=== PATIENT | male | born 1950 | race Caucasian/White ===

== ENCOUNTER → 2021-03-15 | Outpatient (CLI) | payer OTHER, SELFPAY | END | disposition home or self-care (01) | LOC: LABSPEC 12:20 | PROVIDERS: PCP Family Medicine; Visit Provider Family Medicine | DX: Z20.822 Contact with and (suspected) exposure to COVID-19 (principal) | CPT/HCPCS: 87635; U0005; U0003 ==

== ENCOUNTER 2021-04-05 08:30 | Outpatient (RCR) | payer OTHER, SELFPAY ==
--- NOTE | 2021-03-07 11:27 | HP.OTEVAL_ITS ---
Patient's Visit Information DORIS MIRANDA Jr. is a 71 year old M, referred to Occupational Therapy by Dr. Hiro Peña MD, with a diagnosis of left MF displaced fx of proximal phalanx. Date of Evaluation: 03/07/21 Occupational Therapist: Roxanne Liao, OTR/[place], CHT - Subjective This 71 year old male was seen for OT eval with dx of left displaced fx of proximal phalanx of left MF. DOI - pt states while mowing the grass he hit a rut and the steering wheel snapped back- braking his finger. pt underwent pinning . pt arrives with orthosis on- states some soreness where pins were removed- pt states he does a lot of outside work and not being able to use his hand is bothersome. pt would like to return to his POF. - ADLs Yard: Mow lawn, [place], [place] Miscellaneous: Use hand tools, Use power tools Comments: pt unable to use weed whacker or back pack blower - ROM MP: left -5/60 right 0/75 PIP: left MF -5/55* right 0/95 DIP: left MF 0/40 right 0/45 - Strength House Cleaner Supervisor: left NT right 75# Lateral Pinch: left NT right 12# Tripod Pinch: left NT right 12# - Edema PIP: left MF 7.5 right 7.0 - Sensation Sensation Comments: marisol - Quick DASH-Disab of Arm,Shoulder& Hand Quick DASH Score: 13.6350 - Goals Goal:: pt will demo a left supervisor drilling and shooting strength to 45# or greater to return pt to PLOF by d.c Goal:: pt will demo the ability to form a composite to hold small object ind. by dc. pt will demo MCP flexion to 70* or greater, and PIP flexion to 85* or greater by d.c to increase ind. with composite fist - Rehabilitation General Assessment: pt demo with healing fx and limited ROM of left digits limiting pts ability to form a composite fist. This limits pt with IADLs and home mtg. pt would benefit from skilled OT services 1-2x week for 4 weeks to return pts ROM and strength for pt to become IND with his Home mtg. Today therapist adjusted orthosis to increase comfort, ed. pt on tendon glides and hand anatomy- ed.pt that at 6 weeks s/p strengthening can be initiated pt demo understanding and agree to POC. Rehabilitation Potential: Good - Anticipated Interventions A/AAROM/PROM, Strengthening, Edema Control, Scar Care, Modalities, Orthoses, Joint Protection/Energy Conservation, Fine Motor Coord/Keyur, Education re Diagnosis - Visit Plan Frequency: 1-2x /Week Duration: 6 Weeks TEXT: Thank you for the opportunity to evaluate your patient. For Medicare and Medicare HMO plans, please review the plan of care and approve it. It will need to be FAXED BACK to us at [phone] for Medicare purposes. Please let me know if there are questions or concerns regarding this plan of care. Physician Signature: ___Date:
--- NOTE | 2021-04-05 08:43 | HP.OTDCSUM_ITS ---
It has been my pleasure to treat DORIS MIRANDA JrMatias under orders from Dr. Hiro Peña MD, for the diagnosis of left MF displaced fx of proximal phalanx for a total of 5 visit(s). Please see the following information for a summary of their discharge status. % Improvement: 95 Objective/Function: pt demo a left propellant charge loader strength at 40#. pt states he is IND with his ADLs and IADLs. pt states if he doesn't think of his hand he is not limited with any tasks. left PIP ROM -* this is increase ROM from 55*. left DIP 065. left MCP 0. pt has made good gains with his ROM and strength- pt is going to continue strengthening his hand and perform his ROM exercise. pt is ind with ADLs and IADls Patient Goals: Regain Mobility, Regain Strength, Use Hand/Wrist/Arm Normally Again Goal:: pt will demo a left propellant charge loader strength to 45# or greater to return pt to PLOF by d.c Goal:: pt will demo the ability to form a composite to hold small object ind. by dc. pt will demo MCP flexion to 70* or greater, and PIP flexion to 85* or greater by d.c to increase ind. with composite fist Plan: D/C with [facility]P Discharge Comments: pt was seen for 5 OT visits- therapy transitioned pt from a ROM to strengthening program. pt made great gains and currently has met goals in OT. pt d/c with HEP. If there are questions or concerns regarding this patient's occupational therapy, please fell free to call me at [phone]. Thank you for the referral of this patient. Sincerely, Roxanne Liao, OTR/L, CHT
== END 2021-04-05 19:00 | disposition home or self-care (01) ==
LOC: OT 08:30
PROVIDERS: PCP Family Medicine; Referring Provider Orthopaedic Surgery; Visit Provider Orthopaedic Surgery
DX: S62.613D Displaced fracture of proximal phalanx of left middle finger, subsequent encounter for fracture with routine healing (principal)
CPT/HCPCS: 97110; 97166; 97530

== ENCOUNTER 2021-09-08 11:11 | Outpatient (CLI) | payer OTHER, SELFPAY ==
--- NOTE | 2021-09-08 11:14 | RAD_ITS ---
STUDY: X-RAY - RIGHT KNEE REASON FOR EXAM: Male, 71 years old. Knee pain. TECHNIQUE: 4 view(s) of the knee. COMPARISON: None. FINDINGS: Osteopenia. Superior patellar spur. Mild medial compartmental arthrosis with small osteophytes. Mild arthrosis of the lateral compartment with osteophytes. Lateral tilt and subluxation of the patella with moderate arthrosis of the patellofemoral compartment with osteophyte formation. Small joint effusion with at least 2 small intra-articular osteochondral bodies projected anterior to the knee on the lateral view. Focal anterior soft tissue swelling over the distal quadriceps tendon. RAD/Knee 4 or More Views IMPRESSION: Osteopenia with superior patellar spur. Tricompartmental arthrosis as described. Joint effusion with at least 2 small intra-articular osteochondral bodies. Focal anterior soft tissue swelling over the distal quadriceps tendon. Electronically Signed: Lauri Riojas MD at 11:36 EDT ,
--- NOTE | 2021-09-08 11:14 | RAD_ITS ---
STUDY: X-RAY - LEFT KNEE REASON FOR EXAM: Male, 71 years old. Knee pain. TECHNIQUE: 4 view(s) of the knee. COMPARISON: None. FINDINGS: Osteopenia. Mild arthrosis of the medial compartment. Moderate arthrosis of the lateral compartment with osteophytes noted Mild arthrosis of the patellofemoral compartment with small osteophytes. Focal soft tissue swelling superficial to the distal quadriceps tendon. RAD/Knee 4 or More Views IMPRESSION: Osteopenia with tricompartmental arthrosis. Focal anterior soft tissue swelling adjacent to the distal quadriceps tendon. No acute finding. Electronically Signed: Lauri Riojas MD at 11:32 EDT ,
== END 2021-09-08 23:59 | disposition home or self-care (01) ==
LOC: MTLAB 11:13
PROVIDERS: PCP Family Medicine; Referring Provider Family Medicine; Visit Provider Family Medicine
DX: M25.561 Pain in right knee (principal); M25.562 Pain in left knee; M19.90 Unspecified osteoarthritis, unspecified site
CPT/HCPCS: 73564

== ENCOUNTER → 2022-03-17 | Outpatient (CLI) | payer OTHER, SELFPAY ==
[2022-03-17 12:12] LABS: Absolute Lymphocyte Count 2.01 X10^3/uL (0.83-4.51); Absolute Neutrophil Count 6.4 X10^3/uL (2.0-7.7); Basophil# 0.06 X10^3/uL; Basophil% 0.6 % (0-1); Eosinophil# 0.16 X10^3/uL; Eosinophils% 1.7 % (0-5); Hematocrit 47.7 % (40-54); Hemoglobin 14.8 g/dL (13.0-16.5); Lymphocyte # 2.01 X10^3/ul (0.83-4.51); Lymphocyte % 21.5 % (19-41); Mean Corpuscular Hgb 27.9 pg (27.0-32.0); Mean Corpuscular Volume 89.8 fL (80-94); Mean Platelet Vol. 11.6 fl (6.2-12.0); Monocyte# 0.73 X10^3/uL; Monocyte% 7.8 % (0-10); NRBC Flagged by Analyzer 0 % (0-5); Neutrophil # 6.38 X10^3/uL (2.7-7.7); Neutrophil % 68.1 % (47-70); Platelet Count 233 K/mm3 (150-450); RBC Distribution Width CV 14.9 % (11.6-14.6); RBC Distribution Width SD 48.9 fl (35.1-43.9); Red Blood Count 5.31 M/mm3 (4.6-6.2); White Blood Count 9.4 K/mm3 (4.4-11.0)
[2022-03-17 12:39] LABS: ALB/GLOB Ratio 0.9 RATIO (0.9-2.4); AST(SGOT) 17 U/L (15-37); Alanine Aminotransfer ALT/SGPT 34 U/L (16-61); Albumin, Serum 3.5 g/dL (3.2-5.0); Alkaline Phosphatase 70 U/L (45-117); Anion Gap 6 (5-15); BUN 15 mg/dL (7-18); BUN/Creat Ratio 13.4 RATIO (10-20); Calcium,Total 9.6 mg/dL (8.5-10.1); Chloride 104 mmol/L (98-107); Cholesterol 184 mg/dL (200); Creatinine, Serum 1.12 mg/dL (0.70-1.30); EST Glomerular Filtration Rate 69 mL/min (>60); Est Glom Filt Rate - Afr Amer 83 mL/min (>60); Glucose 114 mg/dL (74-106); High Density Lipoprotein 40 mg/dL; PSA,Total - Annual Screen 0.69 ng/mL (0.00-4.00); Protein, Total 7.5 g/dL (6.4-8.2); Sodium Level 139 mmol/L (136-145); Triglycerides 90 mg/dL; Very Low Density Lipoprotein 18 mg/dL (5-40)
[2022-03-17 13:01] LABS: Microalbumin:Creatinine Ratio 12.1 mg/g CRE (<30 mg/g CRE)
[2022-03-17 14:07] LABS: Hemoglobin A1c 6.3 % (3.8-5.6)
== END | disposition home or self-care (01) ==
LOC: MTLAB 09:53
PROVIDERS: PCP Family Medicine; Referring Provider Family Medicine; Visit Provider Family Medicine
DX: E11.9 Type 2 diabetes mellitus without complications (principal); Z51.81 Encounter for therapeutic drug level monitoring; Z12.5 Encounter for screening for malignant neoplasm of prostate
CPT/HCPCS: 36415; 80053; 80061; 82043; 82570; 83036; 84153; 85025; G0103

== ENCOUNTER → 2022-10-26 | Outpatient (CLI) | payer OTHER, SELFPAY ==
[2022-10-26 12:34] LABS: Absolute Lymphocyte Count 2.33 X10^3/uL (0.83-4.51); Absolute Neutrophil Count 6.2 X10^3/uL (2.0-7.7); Basophil# 0.06 X10^3/uL; Basophil% 0.6 % (0-1); Eosinophil# 0.16 X10^3/uL; Eosinophils% 1.7 % (0-5); Hematocrit 50.1 % (40-54); Hemoglobin 15.3 g/dL (13.0-16.5); Lymphocyte # 2.33 X10^3/ul (0.83-4.51); Lymphocyte % 24.5 % (19-41); Mean Corp Hgb Conc 30.5 g/dL (32-36); Mean Corpuscular Hgb 27.7 pg (27.0-32.0); Mean Corpuscular Volume 90.8 fL (80-94); Mean Platelet Vol. 11.8 fl (6.2-12.0); Monocyte# 0.76 X10^3/uL; NRBC Flagged by Analyzer 0 % (0-5); Neutrophil # 6.17 X10^3/uL (2.7-7.7); Neutrophil % 64.9 % (47-70); Platelet Count 248 K/mm3 (150-450); RBC Distribution Width CV 15.1 % (11.6-14.6); RBC Distribution Width SD 50.7 fl (35.1-43.9); Red Blood Count 5.52 M/mm3 (4.6-6.2); White Blood Count 9.5 K/mm3 (4.4-11.0)
[2022-10-26 12:53] LABS: Vitamin B12 > 2000 pg/mL (211-911); Vitamin D,25 Hydroxy 57.6 ng/mL
[2022-10-26 13:03] LABS: ALB/GLOB Ratio 0.8 RATIO (0.9-2.4); AST(SGOT) 19 U/L (15-37); Alanine Aminotransfer ALT/SGPT 34 U/L (16-61); Albumin, Serum 3.6 g/dL (3.2-5.0); Alkaline Phosphatase 66 U/L (45-117); Anion Gap 6 (5-15); BUN 21 mg/dL (7-18); BUN/Creat Ratio 19.3 RATIO (10-20); Calcium,Total 9.5 mg/dL (8.5-10.1); Chloride 104 mmol/L (98-107); Creatinine, Serum 1.09 mg/dL (0.70-1.30); EST Glomerular Filtration Rate 71 mL/min (>60); Est Glom Filt Rate - Afr Amer 85 mL/min (>60); Free T3 2.3 pg/mL (2.18-3.98); Globulin 4.4 g/dL (2.2-4.2); Glucose 141 mg/dL (74-106); Potassium 4.5 mmol/L (3.5-5.1); Sodium Level 139 mmol/L (136-145); T4 Free Direct 0.89 ng/dL (0.76-1.46); Thyroid Stim Hormone (TSH) 3.12 uIU/mL (0.358-3.74)
== END | disposition home or self-care (01) ==
LOC: BFHLAB 09:52
PROVIDERS: PCP Family Medicine; Referring Provider Family Medicine; Visit Provider Family Medicine
DX: E11.9 Type 2 diabetes mellitus without complications (principal); R53.83 Other fatigue; E55.9 Vitamin D deficiency, unspecified; E53.8 Deficiency of other specified B group vitamins; Z51.81 Encounter for therapeutic drug level monitoring
CPT/HCPCS: 36415; 80053; 82306; 82607; 84439; 84443; 84481; 85025

== ENCOUNTER → 2023-07-19 | Outpatient (CLI) | payer OTHER, SELFPAY ==
[2023-07-19 12:30] LABS: Absolute Lymphocyte Count 1.98 X10^3/uL (0.83-4.51); Absolute Neutrophil Count 5.6 X10^3/uL (2.0-7.7); Basophil# 0.05 X10^3/uL; Basophil% 0.6 % (0-1); Eosinophil# 0.18 X10^3/uL; Eosinophils% 2.1 % (0-5); Hematocrit 42.8 % (40-54); Hemoglobin 13.1 g/dL (13.0-16.5); Lymphocyte # 1.98 X10^3/ul (0.83-4.51); Mean Corp Hgb Conc 30.6 g/dL (32-36); Mean Corpuscular Volume 91.5 fL (80-94); Mean Platelet Vol. 12.2 fl (6.2-12.0); Monocyte# 0.77 X10^3/uL; Monocyte% 8.9 % (0-10); NRBC Flagged by Analyzer 0 % (0-5); Neutrophil # 5.61 X10^3/uL (2.7-7.7); Neutrophil % 65.1 % (47-70); Platelet Count 234 K/mm3 (150-450); RBC Distribution Width CV 14.1 % (11.6-14.6); RBC Distribution Width SD 47.5 fl (35.1-43.9); Red Blood Count 4.68 M/mm3 (4.6-6.2); White Blood Count 8.6 K/mm3 (4.4-11.0)
[2023-07-19 12:45] LABS: Microalbumin,Random Urine 17.3 mg/L (NO RANGE EST.); Microalbumin:Creatinine Ratio 7.4 mg/g CRE (<30 mg/g CRE)
[2023-07-19 13:56] LABS: AST(SGOT) 17 U/L (15-37); Alanine Aminotransfer ALT/SGPT 26 U/L (16-61); Albumin, Serum 3.5 g/dL (3.2-5.0); Alkaline Phosphatase 56 U/L (45-117); Anion Gap 3 (5-15); BUN 17 mg/dL (7-18); BUN/Creat Ratio 17.7 RATIO (10-20); Calcium,Total 9.7 mg/dL (8.5-10.1); Chloride 106 mmol/L (98-107); Cholesterol 178 mg/dL (200); Creatinine, Serum 0.96 mg/dL (0.70-1.30); EST Glomerular Filtration Rate 82 mL/min (>60); Est Glom Filt Rate - Afr Amer 99 mL/min (>60); Free T3 2.4 pg/mL (2.18-3.98); Globulin 3.6 g/dL (2.2-4.2); Glucose 108 mg/dL (74-106); High Density Lipoprotein 44 mg/dL; PSA,Total - Annual Screen 0.53 ng/mL (0.00-4.00); Protein, Total 7.1 g/dL (6.4-8.2); Sodium Level 139 mmol/L (136-145); T4 Free Direct 1.14 ng/dL (0.76-1.46); Thyroid Stim Hormone (TSH) 2.53 uIU/mL (0.358-3.74); Triglycerides 63 mg/dL; Very Low Density Lipoprotein 13 mg/dL (5-40)
[2023-07-28 10:08] LABS: Testosterone, % Free 2.71 % (1.50-4.20); Testosterone, Free 6.29 ng/dL (5.00-21.00); Testosterone, Total 232 ng/dL (264-916)
== END | disposition home or self-care (01) ==
LOC: BFHLAB 10:03
PROVIDERS: PCP Family Medicine; Visit Provider Family Medicine
DX: Z12.5 Encounter for screening for malignant neoplasm of prostate (principal); E11.9 Type 2 diabetes mellitus without complications; N52.9 Male erectile dysfunction, unspecified; R53.83 Other fatigue; Z51.81 Encounter for therapeutic drug level monitoring
CPT/HCPCS: 36415; 80053; 80061; 82043; 82570; 84153; 84402; 84403; 84439; 84443; 84481; 85025; G0103

== ENCOUNTER → 2023-09-03 | Outpatient (CLI) | payer OTHER, SELFPAY ==
--- NOTE | 2023-09-03 13:43 | RAD_ITS ---
STUDY: X-RAY - LUMBOSACRAL SPINE REASON FOR EXAM: Male, 73 years old. BACK PAIN TECHNIQUE: 6 view(s) of the lumbosacral spine were obtained including flexion and extension. COMPARISON: None FINDINGS: Normal lumbar lordosis. There is no substantial scoliosis. There is grade 1 retrolisthesis at L3-4. There is no subluxation with flexion or extension. There is multilevel endplate spondylosis of the lumbar vertebrae. There is facet spurring of the lower lumbar spine. Normal bilateral sacral ala, sacroiliac joints, and visualized sacrum. Normal visualized soft tissue structures. RAD/L/S Spine Comp/w Bending Views IMPRESSION: Degenerative changes of the spine, as detailed above. Electronically Signed: Jp Lagunas MD at 19:04 EDT ,
== END | disposition home or self-care (01) ==
PROVIDERS: PCP Family Medicine; Referring Provider Family Medicine; Visit Provider Family Medicine
DX: M54.9 Dorsalgia, unspecified (principal)
CPT/HCPCS: 72114; 72120

== ENCOUNTER 2023-10-20 16:49 | Emergency (ER) | payer OTHER, SELFPAY ==
[2023-10-20 16:49] VITALS: BP 159/88; PULSE 98; RESP 16; TEMP 35.6
[2023-10-20 16:53] VITALS: BP 159/88; PULSE 98; RESP 16; TEMP 35.5; BMI 33.9
--- NOTE | 2023-10-20 17:11 | CT_ITS ---
EXAM: CT ABDOMEN AND PELVIS WITHOUT INTRAVENOUS CONTRAST CLINICAL INDICATION: R flank pain TECHNIQUE: Helically acquired images were obtained of the abdomen and pelvis without intravenous contrast. This CT exam was performed using one or more of the following dose reduction techniques: automated exposure control, adjustment of the mA and/or kV according to patient size, and/or use of iterative reconstruction technique. COMPARISON: No relevant prior studies available. FINDINGS: LOWER THORAX: Unremarkable. Lung bases are clear. No cardiomegaly. No significant pericardial effusion. ABDOMEN: LIVER: Unremarkable. Homogeneous. GALLBLADDER AND BILE DUCTS: Unremarkable. No calcified gallstones. No gallbladder distention or wall edema. No intra- or extrahepatic biliary ductal dilation. PANCREAS: Unremarkable. No focal cystic mass. SPLEEN: Unremarkable. Normal size without focal cystic or solid mass. ADRENALS: Unremarkable. No nodules. KIDNEYS AND URETERS: There are low-density masses in both kidneys compatible with cysts. No follow-up imaging is necessary. There is mild right-sided hydronephrosis and ureter. There is a 4 mm stone in the bladder at the level of right ureteral orifice. STOMACH AND BOWEL: There are fluid-filled loops of small bowel which may represent. No stomach or bowel distention. No focal inflammatory change. PELVIS: APPENDIX: No evidence of acute appendicitis. BLADDER: Unremarkable. REPRODUCTIVE: Unremarkable as visualized. No mass. ABDOMEN and PELVIS: INTRAPERITONEAL SPACE: Unremarkable. No ascites or other fluid collection. No free air. BONES/JOINTS: Unremarkable. No suspicious lytic or blastic abnormality. SOFT TISSUES: Unremarkable. No discrete abdominal or pelvic wall hernia. VASCULATURE: Unremarkable. Abdominal aorta is non-dilated. LYMPH NODES: Unremarkable. No enlarged lymph nodes. CT/Abdomen/Pelvis without Cont IMPRESSION: 1. Obstruction of the right collecting system due to a 4 mm stone in the bladder at the level of right ureteral orifice. There is mild right-sided hydronephrosis. 2. Fluid-filled loops of small bowel which may represent mild enteritis. Electronically Signed: Harshad Wilson MD at 18:19 EDT ,
--- NOTE | 2023-10-20 17:13 | EX.ED.DYSGE1 ---
HPI <LUCY Posada - Last Filed: 10/20/23 18:29> History of Present Illness Chief Complaint: Flank Pain Narrative Narrative: Patient presenting today due to right-sided flank pain that radiates to his right groin that started this afternoon. He reports that the pain has been intermittent and sharp. He has had about 4 episodes of vomiting due to the pain. He denies any history of kidney stones or previous abdominal surgeries. He reports that over the past 2 days he has been constipated, he did take MiraLAX and had a small bowel movement this morning. He denies any fevers, chills, hematemesis, diarrhea, and urinary symptoms. He has a PMH of diabetes mellitus. PFSH <LUCY Posada Last Filed: 10/20/23 18:29> PFSH Allergy/AdvReac Type Severity Reaction Status Date / Time No Known Allergies Allergy Verified 10/20/23 16:53 ROS <LUCY Posada - Last Filed: 10/20/23 18:29> ROS ED Constitutional Constitutional ED: Reports sweats; Denies chills or fever(s) Cardiovascular Cardiovascular: Denies chest pain Respiratory/Chest Respiratory/Chest: Denies cough or dyspnea Gastrointestinal Gastrointestinal: Reports abdominal pain, constipation, nausea and vomiting; Denies diarrhea Genitourinary Genitourinary ED: Denies dysuria, hematuria or urinary urgency Musculoskeletal Musculoskeletal: Reports back pain Integumentary Denies rash Neurologic Neurologic: Denies weakness Psychiatric Psychiatric: Denies anxiety EXAM <LUCY Posada Last Filed: 10/20/23 18:29> Physical Exam Const Vital Signs: 10/20/23 16:53 10/20/23 16:49 Temperature 96 F L 96.0 F L Temperature Source Temporal Temporal Pulse Rate 98 98 Respiratory Rate 16 16 Blood Pressure 159/88 H 159/88 H Blood Pressure Mean 111 111 Positive well nourished, well developed and no apparent distress General Appearance ED: well developed HEENT Reports normocephalic and head/scalp atraumatic Mouth ED: Yes moist mucous membranes normal Eyes PERRL and EOMs intact bilaterally Neck full ROM and supple Chest Wall inspection of chest normal Resp normal respiratory effort and clear to auscultation bilaterally Cardio regular rate and regular rhythm GI soft to palpation, non-tender, non-distended and no masses GI Narrative: Negative McBurney's point tenderness, no rigidity, guarding, or peritoneal signs Back/Spine normal ROM and normal to inspection General Back: CVA tenderness right Extremity normal to inspection and full ROM Neuro oriented x3, CN's II-XII intact bilaterally, moves all extremities, no focal motor deficits and no sensory deficits noted Sensorium / Orientation: awake and alert Psych mental status grossly normal and thought process normal Skin no rashes or lesions noted and no wounds <Dr. Todd Lantigua MD - Last Filed: 10/20/23 18:31> Physical Exam Const Vital Signs: 10/20/23 16:53 10/20/23 16:49 Temperature 96 F L 96.0 F L Temperature Source Temporal Temporal Pulse Rate 98 98 Respiratory Rate 16 16 Blood Pressure 159/88 H 159/88 H Blood Pressure Mean 111 111 MDM <LUCY Posada - Last Filed: 10/20/23 18:29> [facility] Narrative Medical decision making narrative: Patient presenting with right flank pain that started this afternoon. He has had a few episodes of nausea and vomiting. He is well-appearing and in no acute distress, vitals are unremarkable. Examination is suspicious for a kidney stone. Labs will be obtained to rule out leukocytosis, anemia, electrode abnormality, CICI, and UTI. CT of the abdomen and pelvis will be obtained to rule out kidney stone, appendicitis, diverticulitis, bowel obstruction, and other etiology. CT scan does show a 4 mm stone in the bladder. On reexamination he reports that his pain is gone. Patient will be discharged home in stable condition. I have personally performed a face to face assessment of the patient and have reviewed the CARA Note. I performed a substantive portion of the visit including all aspects of the following. My bustos findings include: History is remarkable for acute right flank pain rating to his groin started I was a strain of a bowel movement. He denies history of renal or ureterolithiasis. He did have nausea and vomiting and was diaphoretic. He endorses inability to find a position of comfort. Is never experienced any like this. Denies scrotal or testicular swelling. He denies any dysuria, frequency, urgency or hematuria. Exam is vital signs reveal elevated blood pressure. HEENT is grossly unremarkable. No respiratory distress. Heart is regular. Rate is normal. Abdomen soft nontender. No evidence of inguinal hernia or mass. No klaudia lymphadenopathy. There is no CVA tenderness or abdominal tenderness. Medical Decision Making differential diagnosis would be atypical presentation for aortic aneurysm, dissection, obstructing ureteral stone Other additions or changes: CT of the abdomen pelvis without contrast reveals a small stone which has passed. There was evidence of hydroureter and nephrosis on the right with large renal cysts on the right. Lab Data Labs: Laboratory Results - last 24 hr 10/20/23 10/20/23 17:27 17:48 WBC 17.3 H RBC 5.21 Hgb 14.5 Hct 46.6 MCV 89.4 MCH 27.8 MCHC 31.1 L RDW Std Deviation 44.1 H RDW Coeff of [place]ba 13.5 Plt Count 269 MPV 11.8 Immature Gran % (Auto) 0.500 Neut % (Auto) 82.7 H Lymph % (Auto) 9.2 L [place] % (Auto) 6.6 Eos % (Auto) 0.5 Baso % (Auto) 0.5 Absolute Neuts (auto) 14.3 H Absolute Lymphs (auto) 1.59 Nucleated RBC % 0 Sodium 137 Potassium 3.9 Chloride 100 Carbon Dioxide 27.0 Anion Gap 10 BUN 22 H Creatinine 1.53 H Estim Creat Clear Calc 48.01 Est GFR (MDRD) Af Amer 58 L Est GFR (MDRD) Non-Af 48 L BUN/Creatinine Ratio 14.4 Glucose 171 H Calcium 10.5 H Urine Color Yellow Urine Clarity Clear Urine pH 5.0 Ur Specific [place] 1.025 Urine Protein 30 H Urine Glucose (UA) Normal Urine Ketones 5 H Urine Occult Blood 250 H Urine Nitrite Negative Urine Bilirubin Negative Urine Urobilinogen Normal Ur Leukocyte Esterase 25 H Urine RBC 25-50 SEEN Urine WBC 0-5 SEEN Ur Squamous Epith Cells 0 SEEN Urine Bacteria 0 SEEN Urine Mucus 0 SEEN Radiography Diagnostic Testing: Clinical Impression(s) from Imaging Studies Abdomen/Pelvis CT 10/20/23 17:11 IMPRESSION: 1. Obstruction of the right collecting system due to a 4 mm stone in the bladder at the level of right ureteral orifice. There is mild right-sided hydronephrosis. 2. Fluid-filled loops of small bowel which may represent mild enteritis. Electronically Signed: Harshad Wilson MD at 18:19 EDT , <Dr. Todd Lantigua MD - Last Filed: 10/20/23 18:31> [facility] Narrative Medical decision making narrative: Patient presenting with right flank pain that started this afternoon. He has had a few episodes of nausea and vomiting. He is well-appearing and in no acute distress, vitals are unremarkable. Examination is suspicious for a kidney stone. Labs will be obtained to rule out leukocytosis, anemia, electrode abnormality, CICI, and UTI. CT of the abdomen and pelvis will be obtained to rule out kidney stone, appendicitis, diverticulitis, bowel obstruction, and other etiology. I have personally performed a face to face assessment of the patient and have reviewed the CARA Note. I performed a substantive portion of the visit including all aspects of the following. My bustos findings include: History is remarkable for acute right flank pain rating to his groin started I was a strain of a bowel movement. He denies history of renal or ureterolithiasis. He did have nausea and vomiting and was diaphoretic. He endorses inability to find a position of comfort. Is never experienced any like this. Denies scrotal or testicular swelling. He denies any dysuria, frequency, urgency or hematuria. Exam is vital signs reveal elevated blood pressure. HEENT is grossly unremarkable. No respiratory distress. Heart is regular. Rate is normal. Abdomen soft nontender. No evidence of inguinal hernia or mass. No klaudia lymphadenopathy. There is no CVA tenderness or abdominal tenderness. Medical Decision Making differential diagnosis would be atypical presentation for aortic aneurysm, dissection, obstructing ureteral stone Other additions or changes: CT of the abdomen pelvis without contrast reveals a small stone which has passed. There was evidence of hydroureter and nephrosis on the right with large renal cysts on the right. Lab Data Attestation: I reviewed the patient's lab results. Lab results narrative: White count is elevated with slight shift 17.3 and 82.7 respectively. This could be due to pain/stress. BUN/creatinine elevated 22 and 1.53. GFR is 48. Glucose is elevated 171. CO2 and anion gap are normal. Patient does not have history of diabetes. This will need to be followed up as an outpatient. Labs: Laboratory Results - last 24 hr 10/20/23 10/20/23 17:27 17:48 WBC 17.3 H RBC 5.21 Hgb 14.5 Hct 46.6 MCV 89.4 MCH 27.8 MCHC 31.1 L RDW Std Deviation 44.1 H RDW Coeff of [place] 13.5 Plt Count 269 MPV 11.8 Immature Gran % (Auto) 0.500 Neut % (Auto) 82.7 H Lymph % (Auto) 9.2 L [place] % (Auto) 6.6 Eos % (Auto) 0.5 Baso % (Auto) 0.5 Absolute Neuts (auto) 14.3 H Absolute Lymphs (auto) 1.59 Nucleated RBC % 0 Sodium 137 Potassium 3.9 Chloride 100 Carbon Dioxide 27.0 Anion Gap 10 BUN 22 H Creatinine 1.53 H Estim Creat Clear Calc 48.01 Est GFR (MDRD) Af Amer 58 L Est GFR (MDRD) Non-Af 48 L BUN/Creatinine Ratio 14.4 Glucose 171 H Calcium 10.5 H Urine Color Yellow Urine Clarity Clear Urine pH 5.0 Ur Specific [place] 1.025 Urine Protein 30 H Urine Glucose (UA) Normal Urine Ketones 5 H Urine Occult Blood 250 H Urine Nitrite Negative Urine Bilirubin Negative Urine Urobilinogen Normal Ur Leukocyte Esterase 25 H Urine RBC 25-50 SEEN Urine WBC 0-5 SEEN Ur Squamous Epith Cells 0 SEEN Urine Bacteria 0 SEEN Urine Mucus 0 SEEN Radiography Diagnostic Testing: Clinical Impression(s) from Imaging Studies Abdomen/Pelvis CT 10/20/23 17:11 IMPRESSION: 1. Obstruction of the right collecting system due to a 4 mm stone in the bladder at the level of right ureteral orifice. There is mild right-sided hydronephrosis. 2. Fluid-filled loops of small bowel which may represent mild enteritis. Electronically Signed: Harshad Wilson MD at 18:19 EDT , Discharge Plan Triage Chief Complaint: Flank Pain ED Midlevel Provider: Nguyen Orozco ED Provider: Todd Lantigua Dx/Rx/DC Orders Clinical Impression: Type 2 diabetes mellitus with hyperglycemia, Hydronephrosis with urinary obstruction due to ureteral calculus, Elevated serum creatinine, Elevated blood-pressure reading without diagnosis of hypertension Instructions: ED Kidney Stone, Passed Primary Care Provider: Jennifer Palomares Referrals: Jennifer Palomares DO [Primary Care Provider] - 1 Week Activity Restrictions/Additional Instructions: Follow-up with your PCP and return for any worsening of your symptoms. Disposition Disposition: Home, Self Care
[2023-10-20] MEDS: Ondansetron 4 MG/2 ML Vial IV (17:34)
[2023-10-20] MEDS: Ketorolac 15 MG/ML Vial IV (17:34)
[2023-10-20] MEDS: 0.9% Normal Saline (1000mL) 1,000 ML 999 ML IV (17:34)
[2023-10-20] MEDS: Morphine 4 MG/ML Syringe IV (17:35)
[2023-10-20 17:45] LABS: Absolute Lymphocyte Count 1.59 X10^3/uL (0.83-4.51); Absolute Neutrophil Count 14.3 X10^3/uL (2.0-7.7); Basophil# 0.08 X10^3/uL; Basophil% 0.5 % (0-1); Eosinophil# 0.09 X10^3/uL; Eosinophils% 0.5 % (0-5); Hematocrit 46.6 % (40-54); Hemoglobin 14.5 g/dL (13.0-16.5); Lymphocyte # 1.59 X10^3/ul (0.83-4.51); Lymphocyte % 9.2 % (19-41); Mean Corp Hgb Conc 31.1 g/dL (32-36); Mean Corpuscular Hgb 27.8 pg (27.0-32.0); Mean Corpuscular Volume 89.4 fL (80-94); Mean Platelet Vol. 11.8 fl (6.2-12.0); Monocyte# 1.14 X10^3/uL; Monocyte% 6.6 % (0-10); NRBC Flagged by Analyzer 0 % (0-5); Neutrophil # 14.29 X10^3/uL (2.7-7.7); Neutrophil % 82.7 % (47-70); Platelet Count 269 K/mm3 (150-450); RBC Distribution Width CV 13.5 % (11.6-14.6); RBC Distribution Width SD 44.1 fl (35.1-43.9); Red Blood Count 5.21 M/mm3 (4.6-6.2); White Blood Count 17.3 K/mm3 (4.4-11.0)
[2023-10-20 17:56] LABS: Bacteria 0 SEEN /hpf (None Seen); Color, Urine Yellow (Yellow); Glucose, Dipstick Normal (Normal); Ketone-Dipstick 5 mg/dl (Negative); Leukocyte Esterase-Dipstick 25 /ul (Negative); Mucous, Urine 0 SEEN /hpf (<or=2+); Nitrite-Dipstick Negative (Negative); Occult Blood-Urine 250 /ul (Negative); Protein-Dipstick 30 mg/dl (Negative); Specific Gravity, Urine 1.025 (1.002-1.030); Squamous Epithelial Cells - UA 0 SEEN /hpf (0-5); Urine Bilirubin Dipstick Negative (Negative); Urine Clarity Clear (Clear); Urine Urobilinogen Normal (Normal)
[2023-10-20 18:05] LABS: Anion Gap 10 (5-15); BUN 22 mg/dL (7-18); BUN/Creat Ratio 14.4 RATIO (10-20); Calcium,Total 10.5 mg/dL (8.5-10.1); Chloride 100 mmol/L (98-107); Creatinine, Serum 1.53 mg/dL (0.70-1.30); EST Glomerular Filtration Rate 48 mL/min (>60); Est Glom Filt Rate - Afr Amer 58 mL/min (>60); Estimated Creatinine Clearance 48.01 ml/min; Glucose 171 mg/dL (74-106); Potassium 3.9 mmol/L (3.5-5.1); Sodium Level 137 mmol/L (136-145)
[2023-10-20 18:14] LABS: Red Blood Cells-Urine 25-50 SEEN /hpf (0-5); White Blood Cells 0-5 SEEN /hpf (0-5)
[2023-10-20 18:49] VITALS: BP 110/68; PULSE 74; RESP 16; O2SAT 98
[2023-10-20 18:50] VITALS: BP 107/72; PULSE 69; RESP 18; TEMP 36.9; O2SAT 98
== END 2023-10-20 18:52 | disposition home or self-care (01) ==
PROVIDERS: Physician Assistant; Emergency Provider Emergency Medicine; PCP Family Medicine; Visit Provider Emergency Medicine
DX: N13.2 Hydronephrosis with renal and ureteral calculous obstruction (principal); E11.65 Type 2 diabetes mellitus with hyperglycemia; R03.0 Elevated blood-pressure reading, without diagnosis of hypertension; R11.2 Nausea with vomiting, unspecified; N28.1 Cyst of kidney, acquired; N13.4 Hydroureter; Z79.84 Long term (current) use of oral hypoglycemic drugs; Z79.899 Other long term (current) drug therapy
CPT/HCPCS: 74176; 80048; 81001; 85025; 96361; 96374; 96375; 99283; J7030; A4216; J2405

== ENCOUNTER → 2024-09-24 | Outpatient (CLI) | payer OTHER, SELFPAY ==
[2024-09-24 12:59] LABS: Absolute Lymphocyte Count 2.42 X10^3/uL (0.83-4.51); Absolute Neutrophil Count 4.5 X10^3/uL (2.0-7.7); Basophil# 0.05 X10^3/uL; Basophil% 0.6 % (0-1); Eosinophil# 0.17 X10^3/uL; Eosinophils% 2.2 % (0-5); Hematocrit 42.7 % (40-54); Hemoglobin 13.7 g/dL (13.0-16.5); Lymphocyte # 2.42 X10^3/ul (0.83-4.51); Lymphocyte % 30.7 % (19-41); Mean Corp Hgb Conc 32.1 g/dL (32-36); Mean Corpuscular Hgb 28.7 pg (27.0-32.0); Mean Corpuscular Volume 89.3 fL (80-94); Mean Platelet Vol. 11.4 fl (6.2-12.0); Monocyte# 0.71 X10^3/uL; NRBC Flagged by Analyzer 0 % (0-5); Neutrophil # 4.53 X10^3/uL (2.7-7.7); Neutrophil % 57.4 % (47-70); Platelet Count 236 K/mm3 (150-450); RBC Distribution Width SD 45.2 fl (35.1-43.9); Red Blood Count 4.78 M/mm3 (4.6-6.2); White Blood Count 7.9 K/mm3 (4.4-11.0)
[2024-09-24 13:46] LABS: Microalbumin,Random Urine < 12.0 mg/L (NO RANGE EST.); Microalbumin:Creatinine Ratio UNABLE TO CALCULATE mg/g CRE
[2024-09-24 13:54] LABS: ALB/GLOB Ratio 1.3 RATIO (0.9-2.4); AST(SGOT) 18 U/L (<=37); Alanine Aminotransfer ALT/SGPT 18 U/L (<=46); Albumin, Serum 4.1 g/dL (3.4-4.8); Alkaline Phosphatase 60 U/L (40-129); Anion Gap 11 (5-15); BUN 18 mg/dL (4-19); BUN/Creat Ratio 14.5 RATIO (10-20); Calcium,Total 10.1 mg/dL (7.6-11.0); Carbon Dioxide 27.5 mmol/L (21.0-32.0); Chloride 101 mmol/L (98-108); Cholesterol 200 mg/dL (<=200); Creatinine, Serum 1.21 mg/dL (0.70-1.20); EST Glomerular Filtration Rate 63 (>60); Free T3 2.8 pg/mL (2.18-3.98); Globulin 3.2 g/dL (2.2-4.2); Glucose 122 mg/dL (70-99); High Density Lipoprotein 47 mg/dL; Low Density Lipoprotein Calc. 137 mg/dL; PSA,Total- Diagnostic 1.01 ng/mL (0.00-4.00); Potassium 4.2 mmol/L (3.3-5.1); Protein, Total 7.3 g/dL (5.9-8.4); Sodium Level 140 mmol/L (133-145); Total Bilirubin 0.41 mg/dL (0.00-1.30); Triglycerides 83 mg/dL; Very Low Density Lipoprotein 17 mg/dL (5-40); cholesterol:hdl ratio screen 4.28
== END | disposition home or self-care (01) ==
LOC: BFHLAB 10:14
PROVIDERS: PCP Family Medicine; Visit Provider Family Medicine
DX: Z51.81 Encounter for therapeutic drug level monitoring (principal); E11.9 Type 2 diabetes mellitus without complications; Z12.5 Encounter for screening for malignant neoplasm of prostate; N52.9 Male erectile dysfunction, unspecified; R53.83 Other fatigue
CPT/HCPCS: 36415; 80053; 80061; 82043; 82570; 84153; 84402; 84403; 84439; 84443; 84481; 85025

== ENCOUNTER → 2024-11-11 | Outpatient (CLI) | payer OTHER, SELFPAY ==
[2024-11-11 11:11] LABS: Free T3 2.7 pg/mL (2.18-3.98)
== END | disposition home or self-care (01) ==
PROVIDERS: PCP Family Medicine; Referring Provider Family Medicine; Visit Provider Family Medicine
DX: E03.9 Hypothyroidism, unspecified (principal)
CPT/HCPCS: 36415; 84439; 84443; 84481; 86376; 86800

== ENCOUNTER → 2024-11-12 | Outpatient (CLI) | payer OTHER, SELFPAY ==
[2024-11-13 16:09] LABS: Thyroglobulin Antibody < 1.0 IU/mL (0.0-0.9); Thyroid Peroxidase AB 76 IU/mL (0-34)
== END | disposition home or self-care (01) ==
LOC: MTLAB 09:11
PROVIDERS: PCP Family Medicine; Referring Provider Family Medicine; Visit Provider Family Medicine
DX: E03.9 Hypothyroidism, unspecified (principal)
CPT/HCPCS: 86376; 86800